=== PATIENT | male | born 1960 | race Caucasian/White ===

== ENCOUNTER → 2024-07-08 07:17 | Day surgery (SDC) | payer OTHER, SELFPAY ==
[2024-07-08 13:51] LABS: Glucose - Point of Care 104 mg/dl (70-99)
== END ==
LOC: GI 07:17
PROVIDERS: ATTENDING PHYSICIAN Specialist
DX: Z12.11 Encounter for screening for malignant neoplasm of colon (principal); Z86.010 Personal history of colon polyps; K57.30 Diverticulosis of large intestine without perforation or abscess without bleeding; D12.2 Benign neoplasm of ascending colon
CPT/HCPCS: 45380; 88305; 82962

== ENCOUNTER → 2025-07-22 06:52 | Outpatient (REF) | payer OTHER, SELFPAY | LOC: PAVMRI 06:52 | PROVIDERS: ATTENDING PHYSICIAN Nurse Practitioner | DX: H53.451 Other localized visual field defect, right eye (principal) | CPT/HCPCS: 70551 ==